=== PATIENT | female | born 1950 | race Caucasian/White ===

== ENCOUNTER 2022-10-08 21:25 | Observation (INO) ==
--- NOTE | 2022-10-08 21:45 | Emergency Department Note ---
History of Present Illness General Chief complaint: Hypertension Stated complaint: BLOOD PRESSURE HIGH; NAUSEA Time Seen by Provider: 10/08/22 21:34 History of Present Illness This is a 72-year-old female that presents to the emergency department via private vehicle with complaints of "blood pressure elevated, nausea". The patient notes a history of hypertension and hypercholesterolemia. She currently is on metoprolol and recently had her dose change from 25 mg to 50 mg. She states that today around 1 PM she fell like her blood pressure was elevated. She checked her blood pressure and it was elevated. She then went and had a hair appointment followed by running some errands and then checked it again around 4 PM. That was when she took 50 mg of metoprolol. She checked her blood pressure at that time and it was 171/102. She felt nauseated and dizzy. She described the dizziness as a room spinning sensation. She still feels nauseated. Patient feels warm/flushed. She denies any fevers, chills, chest pain, shortness of breath, vomiting or diarrhea. She had a headache earlier but did take ibuprofen and since then this has greatly improved. No history of OK or PE. No history of CVA. Home Medications Medication Instructions Recorded Confirmed Type amitriptyline 25 mg tablet 25 mg PO HS 10/09/22 10/09/22 History atorvastatin 20 mg tablet 20 mg PO HS 10/09/22 10/09/22 History lorazepam 0.5 mg tablet 0.5 mg PO HS PRN Insomnia 10/09/22 10/09/22 History metoprolol succinate 50 mg 50 mg PO DAILY 10/09/22 10/09/22 History tablet,extended release 24 hr Allergies Allergy/AdvReac Type Severity Reaction Status Date / Time No Known Allergies Allergy Unknown NO Verified 09/29/09 15:17 Past Med/Surg History Medical History HTN (hypertension) Hx of breast cancer Hypercholesteremia Surgical History Hx of breast surgery Social History Smoking Status: Never smoker Second Hand Exposure: No; Do You Dip or Chew Tobacco: No; Hx Alcohol Use: Yes Alcohol type: wine Hx Substance Use: No Preferred Language: Omani Communication Ability: Effective Vascular Ultrasound Technician Required: No Beliefs That Will Affect Care: None Current Living Situation: Spouse Current Living Situation Comment: Lives w/ spouse @ home Feels Safe at Home: Yes Safety Concerns: Feels Safe At This Time Assistive Devices: None Review of Systems A total of 10 systems reviewed and were otherwise negative Physical Exam Vital Signs Vital Signs - 24 hr 10/08/22 21:29 10/08/22 22:08 10/08/22 23:00 Temperature 37 C Temperature Source Temporal Artery Scan Pulse Rate 94 H 71 Pulse Rate [Apical] 86 Pulse Rate from SpO2 Sensor 70 Pulse Rhythm Regular Pulse Strength Normal Respiratory Rate 18 20 16 Respiratory Effort / Characteristics Non-Labored Spontaneous Non-Labored Respiratory Depth Normal Normal Respiratory Pattern Regular Blood Pressure 163/85 H 130/66 Blood Pressure Mean 111 87 Blood Pressure Position Sitting Pulse Oximetry 95 95 95 Oxygen Delivery Method Room Air Room Air Room Air Sepsis Recent Fever Within 48 Hours No Sepsis New/Unexplained Change in Mental Status N/A Sepsis Action Taken by Nursing No Action Required 10/08/22 23:33 10/09/22 00:00 10/09/22 00:30 Temperature Temperature Source Pulse Rate 80 76 76 Pulse Rate [Apical] Pulse Rate from SpO2 Sensor 80 76 76 Pulse Rhythm Pulse Strength Respiratory Rate 12 16 19 Respiratory Effort / Characteristics Respiratory Depth Respiratory Pattern Blood Pressure 154/64 H 142/61 H 154/90 H Blood Pressure Mean 94 88 111 Blood Pressure Position Pulse Oximetry 95 92 95 Oxygen Delivery Method Room Air Room Air Sepsis Recent Fever Within 48 Hours Sepsis New/Unexplained Change in Mental Status Sepsis Action Taken by Nursing 10/09/22 01:00 10/09/22 01:30 Temperature Temperature Source Pulse Rate 73 80 Pulse Rate [Apical] Pulse Rate from SpO2 Sensor 73 77 Pulse Rhythm Pulse Strength Respiratory Rate 19 17 Respiratory Effort / Characteristics Respiratory Depth Respiratory Pattern Blood Pressure 136/65 113/64 Blood Pressure Mean 88 80 Blood Pressure Position Pulse Oximetry 92 92 Oxygen Delivery Method Room Air Room Air Sepsis Recent Fever Within 48 Hours Sepsis New/Unexplained Change in Mental Status Sepsis Action Taken by Nursing VITAL SIGNS - Vital signs and nursing notes were reviewed. Stable and afebrile. Mildly hypertensive. GENERAL -72-year-old female appearing her stated age who is in no acute distress. Communicates well with provider and answers questions appropriately. SKIN - Without rashes. No meningeal or petechial rash. HEAD - NC/AT. EYES - PERRL with EOMI bilaterally. Sclera anicteric. EARS - No deformities of external structures noted on gross examination bilaterally. NOSE - Midline and without cyanosis. MOUTH/OROPHARYNX - Without perioral cyanosis. NECK - Neck with FROM. No nuchal rigidity. LUNGS - Chest wall symmetric without accessory muscle use, intercostals retractions, or central cyanosis. Normal vesicular breath sounds CTA B/L. No wheezes, rales, or rhonchi appreciated. CARDIAC - RRR with S1/S2. No murmur, rubs, or gallops appreciated. ABDOMEN - Abdominal contour normal without pulsations or visible masses. BS normoactive all four quadrants. No tenderness, palpable masses, hepatosplenomegaly, or ascites noted. EXTREMITIES - No clubbing or peripheral cyanosis. +5/5 strength noted in UE/LE bilaterally. NEUROLOGIC - Cranial nerves II through XII grossly intact. PSYCH - A&O, and cooperates fully with examiner. Pt is very pleasant and interacts well with examiner. Course Administered Medications Dextrose/Sodium Chloride (D5w And Nss) 1,000 mls @ 80 mls/hr IV .[id number] KRAIG Stop: 10/09/22 14:54 Last Admin: 10/09/22 02:49 Dose: 80 mls/hr Documented By: MICHAEL Ceftriaxone Sodium 2,000 mg/ (Dextrose) 70 mls @ 100 mls/hr IV Q24H KRAIG; Protocol Stop: 10/19/22 02:59 Last Infusion: 10/09/22 04:09 Dose: 0 mls/hr Documented By: Admin: 10/09/22 03:30 Dose: 100 mls/hr Documented By: RENÉ Discontinued Medications Diphenhydramine HCl (Diphenhydramine 50 Mg/Ml Vial) 12.5 mg IV NOW STA Stop: 10/08/22 23:36 Last Admin: 10/08/22 23:40 Dose: 12.5 mg Documented By: NIKOLAS Sodium Chloride (Nss 1000ml) 1,000 mls @ 999 mls/hr IV .Q1H1M KRAIG Stop: 10/09/22 00:15 Last Infusion: 10/09/22 00:31 Dose: 0 mls/hr Documented By: Admin: 10/08/22 23:34 Dose: 999 mls/hr Documented By: NIKOLAS Ioversol (Optiray 320 500ml) 103 ml IV ONCE ONE Stop: 10/08/22 23:27 Last Admin: 10/08/22 23:27 Dose: 103 ml Documented By: ZAKIA Metoclopramide HCl (Metoclopramide Hcl Inj 5 Mg/Ml 2 Ml Vial) 5 mg IV ONE ONE Stop: 10/08/22 23:36 Last Admin: 10/08/22 23:40 Dose: 5 mg Documented By: NIKOLAS Ondansetron HCl (Ondansetron Inj 2 Mg/Ml 2 Ml Vial) 4 mg IV NOW STA Stop: 10/08/22 22:04 Last Admin: 10/08/22 22:15 Dose: 4 mg Documented By: MILLI Medical Decision Making Laboratory Data Result diagrams: 10/09/22 05:36 10/09/22 05:36 Lab Results 10/08/22 10/08/22 10/08/22 Range/Units 22:06 22:06 22:09 WBC 7.87 (4.8-10.8) K/ul RBC 4.44 (3.93-5.22) M/uL Hgb 14.4 (12.0-16.0) g/dl Hct 41.0 (34.1-44.9) % MCV 92.3 (80.0-100.0) fL MCH 32.4 (25.0-34.0) pg MCHC 35.1 (32.0-36.0) g/dL RDW Std Deviation 42.9 (36.4-46.3) fL RDW Coeff of Amber 12.5 (11.5-14.5) % Plt Count 126 L (130-400) K/uL MPV 10.3 (9.4-12.3) fL Immature Gran % (Auto) 0.3 % Neut % (Auto) 58.4 % Lymph % (Auto) 29.1 % [place] % (Auto) 8.4 % Eos % (Auto) 3.0 % Baso % (Auto) 0.8 % Neut # (Auto) 4.60 (1.4-6.5) K/uL Lymph # (Auto) 2.29 (1.2-3.4) K/uL [place] # (Auto) 0.66 (0.24-0.82) K/uL Eos # (Auto) 0.24 (0-0.50) K/uL Baso # (Auto) 0.06 (0-0.2) K/uL Immature Gran # (Auto) 0.02 (0.00-0.02) K/uL PT (9.0-12.0) Seconds INR (0.9-1.1) APTT (21.0-31.0) Seconds PTT Ratio Sodium (136-145) mmol/L Potassium (3.5-5.1) mmol/L Chloride (98-107) mmol/L Carbon Dioxide (21-32) mmol/L Anion Gap (3-11) BUN (6-23) mg/dl Creatinine (0.6-1.2) mg/dl Est Cr Clr Drug Dosing ml/min Est GFR ( Amer) ml/min Est GFR (Non-Af Amer) ml/min BUN/Creatinine Ratio (10-20) Glucose (70-99(Fasting)) mg/dl Calcium (8.5-10.1) mg/dl Magnesium (1.7-2.4) mg/dl Total Bilirubin (0.2-1.0) mg/dl AST (13-39) U/L ALT (7-52) U/L Alkaline Phosphatase (34-104) U/L Troponin I High Sens (0-14) pg/ml Total Protein (6.0-8.3) gm/dl Albumin (3.4-5.0) gm/dl Globulin (2.5-4.0) gm/dl Albumin/Globulin Ratio (0.9-2) TSH (0.300-4.500) uIu/ml Free T4 (0.61-1.60) ng/dl Urine Color Yellow Urine Appearance Clear (Clear) Urine pH 6.5 (4.5-7.5) Ur Specific [place] 1.011 (1.000-1.030) Urine Protein Negative (Negative) Urine Glucose (UA) Negative (Negative) Urine Ketones Negative (Negative) Urine Blood Negative (Negative) Urine Nitrite Negative (Negative) Urine Bilirubin Negative (Negative) Urine Urobilinogen Negative (Negative) Ur Leukocyte Esterase 2+ H (Negative) Urine WBC (Auto) 10-30 H (0-5) /hpf Urine RBC (Auto) 0-4 (0-4) /hpf U Hyaline Cast (Auto) 1-5 (0-5) /lpf U Epithel Cells (Auto) >30 H (0-5) /lpf Urine Bacteria (Auto) Negative (Negative) SARS-CoV-2 (PCR) NEGATIVE (Negative) Influenza Type A (PCR) Negative (Neg) Influenza Type B (PCR) Negative (Neg) RSV (RT-PCR) Negative (Neg) 10/08/22 10/08/22 10/08/22 Range/Units 22:09 22:09 22:09 WBC (4.8-10.8) K/ul RBC (3.93-5.22) M/uL Hgb (12.0-16.0) g/dl Hct (34.1-44.9) % MCV (80.0-100.0) fL MCH (25.0-34.0) pg MCHC (32.0-36.0) g/dL RDW Std Deviation (36.4-46.3) fL RDW Coeff of Amber (11.5-14.5) % Plt Count (130-400) K/uL MPV (9.4-12.3) fL Immature Gran % (Auto) % Neut % (Auto) % Lymph % (Auto) % [place] % (Auto) % Eos % (Auto) % Baso % (Auto) % Neut # (Auto) (1.4-6.5) K/uL Lymph # (Auto) (1.2-3.4) K/uL [place] # (Auto) (0.24-0.82) K/uL Eos # (Auto) (0-0.50) K/uL Baso # (Auto) (0-0.2) K/uL Immature Gran # (Auto) (0.00-0.02) K/uL PT 12.6 H (9.0-12.0) Seconds INR 1.2 H (0.9-1.1) APTT 29.2 (21.0-31.0) Seconds PTT Ratio 1.1 Sodium 138 (136-145) mmol/L Potassium 3.7 (3.5-5.1) mmol/L Chloride 102 (98-107) mmol/L Carbon Dioxide 27 (21-32) mmol/L Anion Gap 9 (3-11) BUN 20 (6-23) mg/dl Creatinine 0.77 (0.6-1.2) mg/dl Est Cr Clr Drug Dosing 59.3 ml/min Est GFR ( Amer) 88.8 ml/min Est GFR (Non-Af Amer) 76.6 ml/min BUN/Creatinine Ratio 26.0 H (10-20) Glucose 117 H (70-99(Fasting)) mg/dl Calcium 10.2 H (8.5-10.1) mg/dl Magnesium 2.1 (1.7-2.4) mg/dl Total Bilirubin 1.5 H (0.2-1.0) mg/dl AST 28 (13-39) U/L ALT 31 (7-52) U/L Alkaline Phosphatase 103 (34-104) U/L Troponin I High Sens 20.6 H (0-14) pg/ml Total Protein 7.9 (6.0-8.3) gm/dl Albumin 4.4 (3.4-5.0) gm/dl Globulin 3.5 (2.5-4.0) gm/dl Albumin/Globulin Ratio 1.3 (0.9-2) TSH 6.566 H (0.300-4.500) uIu/ml Free T4 0.72 (0.61-1.60) ng/dl Urine Color Urine Appearance (Clear) Urine pH (4.5-7.5) Ur Specific [place] (1.000-1.030) Urine Protein (Negative) Urine Glucose (UA) (Negative) Urine Ketones (Negative) Urine Blood (Negative) Urine Nitrite (Negative) Urine Bilirubin (Negative) Urine Urobilinogen (Negative) Ur Leukocyte Esterase (Negative) Urine WBC (Auto) (0-5) /hpf Urine RBC (Auto) (0-4) /hpf U Hyaline Cast (Auto) (0-5) /lpf U Epithel Cells (Auto) (0-5) /lpf Urine Bacteria (Auto) (Negative) SARS-CoV-2 (PCR) (Negative) Influenza Type A (PCR) (Neg) Influenza Type B (PCR) (Neg) RSV (RT-PCR) (Neg) Imaging Data Radiologist's Impression: CT HEAD: Impression: No ICH, mass effect or edema. No evidence of acute cortical stroke. Visualized sinuses and mastoid air cells are clear. Radiologist: Rony Robison MD Study ready at 22:34 and initial results transmitted at 22:57 CTA HEAD: Negative CT angiogram of the head. No comparisons. Radiologist: Gladys Abreu MD Study ready at 23:49 and initial results transmitted at 00:02 CTA NECK: Bilateral ICA fibromuscular dysplasia. Otherwise negative CT angiogram of the neck. No comparisons. Cervical lymphadenopathy. Right thyroid nodule. Radiologist: Gladys Abreu MD Study ready at 23:49 and initial results transmitted at 00:07 MDM Narrative Patient was seen and evaluated as above in room A11. Review was performed of nursing notes and vital signs. I did review pertinent previous visits and p atient history. After obtaining a thorough history and physical examination the above work up was performed. No indication for stroke alert at this time noting time since onset of symptoms versus presenting time. Options of care were discussed with the patient. IV access was established. Labs were drawn. She was medicated with IV Zofran for nausea. EKG reveals sinus rhythm at a rate of 80 bpm. QTc 459. QRS 96. No ST elevation. Labs reveal no leukocytosis or concerning anemia. Mild INR elevation at 1.2. Metabolic panel reveals hyperglycemia 117. Hypercalcemia 10.2. Hyperbilirubine too 1.5. Troponin also mildly elevated at 20.6. TSH elevated at 6.5. Urinalysis reveals what is likely a contaminated sample. COVID, flu and RSV testing negative. Chest x-ray per my interpretation reveals no emergent process. Initial CT scan of the head without contrast normal. CTAs were then obtained of the head and neck to further evaluate the patient's vertiginous symptoms. IV fluids also ordered as she feels dry and clinically appears dry. CTA results as above. No emergent occlusion noted. Bilateral ICA fibromuscular dysplasia noted. Patient continued with some nausea that was medicated with Reglan and a small amount of Benadryl. She was reevaluated with some improvement. Patient's symptoms started around 1 PM and with the troponin being drawn at 2209 and found to be at 20.6 it is felt that significant myocardial ischemia is unlikely. I will also note that there is no chest pain. However, given the patient's dizziness, nausea and small troponin elevation with associated underlying comorbidities it is felt that further evaluation and management in the inpatient setting is warranted. Case discussed with the hospitalist service. Patient amenable to plan of care. Please refer to further documentation regarding her stay. Case was discussed with the attending physician. GCS: 15 In the evaluation and treatment of this patient the following differential diagnoses were entertained: OK, PE, pericarditis, costochondritis, CVA, TIA, electrolyte disturbance, infection, UTI, among others Impression & Plan Elevated troponin, Dizziness, Elevated blood pressure reading, Nausea Discharge Plan Visit Data Chief Complaint: Hypertension Stated Complaint: BLOOD PRESSURE HIGH; NAUSEA ED Provider: Perico Lindsay ED Midlevel Provider: Gregory Joseph Discharge Problem: Elevated troponin, Dizziness, Elevated blood pressure reading, Nausea Patient Disposition: Admitted As Inpatient Condition: Good Discharge Instructions Interventions: ED Discharge Assessment Last Done: 10/09/22 02:04 Addendum October 09, 2022 06:27 HPI: The patient is a 72-year-old woman who presents to the emergency department for nausea and dizziness which began at 1 PM today and noticed her blood pressure was elevated. Her symptoms persisted throughout today with dizziness and room spinning. She denies chest pain, shortness of breath, fevers, cough or congestion. She had a mild headache earlier in the day but resolved with ibuprofen. VS: Afebrile with heart rate in the 90s and blood pressure 160s/80s and vital signs otherwise stable. A/P: EKG without overt acute ischemia. CXR negative for acute cardiopulmonary process per preliminary review. WBC, H/H normal limits. Platelets 126K without prior values for comparison nonspecific. Chemistry without metabolic acidosis. High-sensitivity troponin 20.6, nonspecific. TSH elevated at 6.5 however free T4 within normal limits. UA with WBCs albeit with epithelial cells and no bacteria. Covid-19 PCR negative. Influenza and RSV PCR negative. CT of the head and CTA of the head and neck were performed. Note is made of bilateral ICA fibromuscular dysplasia per preliminary stat rad report. Otherwise no acute abnormalities identified. Patient felt improved following hydration and antiemetics with BP improved. However still somewhat symptomatic and so agrees with plan for admission for further evaluation and treatment. I was consulted by the Advanced Practice Provider.I performed a substantive portion of the visit.This includes aspects of the HPI, MDM, diagnostic interpretations, and disposition/plan. I discussed the case with the KAT and agree with the findings and plan as documented in KAT Bamat's note.
[2022-10-08] MEDS ORDERED: ONDANSETRON INJ 2 MG/ML 2 ML VIAL IV STA (22:03)
[2022-10-08 22:34] LABS: INR 1.2 (0.9-1.1); Partial Thromboplastin Ratio 1.1; Partial Thromboplastin Time 29.2 Seconds (21.0-31.0); Prothrombin Time 12.6 Seconds (9.0-12.0)
[2022-10-08 22:44] LABS: Albumin Globulin Ratio 1.3 (0.9-2); Albumin Level 4.4 gm/dl (3.4-5.0); Bilirubin,Total 1.5 mg/dl (0.2-1.0); Calcium 10.2 mg/dl (8.5-10.1); Creatinine Clr Calc Pharmacy 59.3 ml/min; Est GFR (African American) 88.8 ml/min; Est GFR (Non-African American) 76.6 ml/min; Globulin 3.5 gm/dl (2.5-4.0); Magnesium 2.1 mg/dl (1.7-2.4); Potassium 3.7 mmol/L (3.5-5.1); Total Protein 7.9 gm/dl (6.0-8.3)
[2022-10-08 22:50] LABS: Basophils # (auto) 0.06 K/uL (0-0.2); Basophils % (auto) 0.8 %; Eosinophils # (auto) 0.24 K/uL (0-0.50); Hemoglobin 14.4 g/dl (12.0-16.0); Immature Granulocytes # (auto) 0.02 K/uL (0.00-0.02); Immature Granulocytes % (auto) 0.3 %; Lymphocytes # (auto) 2.29 K/uL (1.2-3.4); Lymphocytes % (auto) 29.1 %; Mean Corpuscular Hemoglobin 32.4 pg (25.0-34.0); Mean Corpuscular Hgb Conc 35.1 g/dL (32.0-36.0); Mean Corpuscular Volume 92.3 fL (80.0-100.0); Mean Platelet Volume 10.3 fL (9.4-12.3); Monocytes # (auto) 0.66 K/uL (0.24-0.82); Monocytes % (auto) 8.4 %; Neutrophils % (auto) 58.4 %; Platelet Count 126 K/uL (130-400); RDW Coefficient of Variation 12.5 % (11.5-14.5); RDW Standard Deviation 42.9 fL (36.4-46.3); Red Blood Count 4.44 M/uL (3.93-5.22); White Blood Count 7.87 K/ul (4.8-10.8)
[2022-10-08 22:51] LABS: Troponin I High Sensitivity 20.6 pg/ml (0-14)
[2022-10-08 22:56] LABS: Appearance Urine Clear (Clear); Bacteria Urine Automated Negative (Negative); Bilirubin Urine Negative (Negative); Blood Urine Negative (Negative); Color Urine Yellow; Epithelial Cell Urine Auto >30 /lpf (0-5); Glucose Urine UA Negative (Negative); Ketones Urine Negative (Negative); Leukocyte Esterase Urine 2+ (Negative); Nitrite Urine Negative (Negative); Protein Urine Negative (Negative); RBC Urine Automated 0-4 /hpf (0-4); Specific Gravity Urine 1.011 (1.000-1.030); Urobilinogen Urine Negative (Negative); pH Urine 6.5 (4.5-7.5)
[2022-10-08 22:59] LABS: Thyroid Stimulating Hormone 6.566 uIu/ml (0.300-4.500)
[2022-10-08 23:02] LABS: Influenza A virus by PCR Negative (Neg); Influenza B virus by PCR Negative (Neg); RSV by PCR Negative (Neg); SARS CoV2 RNA(COVID-19)Cepheid NEGATIVE (Negative)
[2022-10-08] MEDS ORDERED: SODIUM CHLORIDE 0.9% 1000ML 1,000 ML IV SCH (23:15)
[2022-10-08] MEDS ORDERED: OPTIRAY 320 500ml IV ONE (23:26)
[2022-10-08 23:31] LABS: T4 Free Thyroxine 0.72 ng/dl (0.61-1.60)
[2022-10-08] MEDS ORDERED: diphenhydrAMINE 50 MG/ML VIAL IV STA (23:35)
[2022-10-08] MEDS ORDERED: METOCLOPRAMIDE HCL INJ 5 MG/ML 2 ML VIAL IV ONE (23:35)
[2022-10-09] MEDS ORDERED: D5W AND NSS 1,000 ML IV SCH (02:25)
[2022-10-09] MEDS ORDERED: LORazepam 0.5 MG TAB PO PRN (02:25)
[2022-10-09] MEDS ORDERED: ACETAMINOPHEN 325 MG TAB PO PRN (02:25)
[2022-10-09] MEDS ORDERED: ONDANSETRON INJ 2 MG/ML 2 ML VIAL IV PRN (02:25)
[2022-10-09] MEDS ORDERED: NITROGLYCERIN SL 0.4 MG/TAB TAB SL PRN (02:25)
[2022-10-09] MEDS ORDERED: POLYETHYLENE (MIRALAX) 17 GM PACK PO PRN (02:25)
[2022-10-09] MEDS ORDERED: cefTRIAXone SODIUM 2,000 MG in DEXTROSE 5% 50 ML IV SCH (03:00)
--- NOTE | 2022-10-09 03:16 | History and Physical Report ---
DATE OF ADMISSION: 10/09/2022. CHIEF COMPLAINT: Elevated blood pressure, dizzy and nausea. HISTORY OF PRESENT ILLNESS: This is a 72-year-old female with past medical history significant for hyperlipidemia, hypertension, tension headache, history of breast cancer diagnosed in 2008, status post right partial mastectomy and radiation, history of insomnia, generalized anxiety, comes because of dizzy and nausea. The patient says she was at work when she felt her blood pressure running high at workplace and she came home at 4 p.m., took her blood pressure, systolic blood pressure was 169. She took her metoprolol dose of 50 mg, which was recently increased from 25 to 50mg and she had conference and when she came back at 8 p.m., her systolic blood pressure was still 177, she decided to come to the hospital. On the way she felt nauseous and dizzy and the room spinning. She thought she will get diarrhea she had no bowel movement in the ER .She had episode of vomiting in the ER. She received Benadryl, Reglan and Zofran. Currently, resting comfortably, hemodynamically stable. Denies any chest pain or shortness of breath. No cough, no fever, no chills. No difficulty swallowing. She had a headache earlier that has resolved. No blurred visions. Currently, no dizziness. Currently, no nausea. No earaches, no abdominal pain. Normal bowel and bladder movements. No swelling in the legs, no rash. Otherwise, ambulating okay. ALLERGIES: No known drug allergies. PAST MEDICAL HISTORY: As mentioned above. PAST SURGICAL HISTORY: Lipoma of left shoulder, biopsy of breast, colonoscopy, right partial mastectomy, radiation treatment, reduction of the breast on left side. MEDICATIONS: The patient is on amitriptyline 25 mg p.o. at bedtime, atorvastatin 20 mg p.o. at bedtime, Ativan 0.5 mg p.o. at bedtime p.r.n., metoprolol succinate 50 mg p.o. daily. FAMILY HISTORY: Significant for mother has hyperlipidemia. Sister has diabetes, hypertension. Paternal grandmother had breast cancer. Paternal grandfather diabetes. Maternal grandmother had diabetes. SOCIAL HISTORY: . No smoking. Alcohol occasional. No drug use. REVIEW OF SYSTEMS: As per HPI. Rest of the review of systems is negative. PHYSICAL EXAMINATION: GENERAL: The patient is of moderate build, not in acute distress. VITAL SIGNS: Temperature 37, pulse 71, respiratory rate 16, blood pressure 113/66, oxygen 99% on room air. HEENT: Pupils equal, round and reactive to light. Oral mucosa moist. NECK: No JVD or neck masses. CARDIOVASCULAR: S1 and S2 heard. Regular rate and rhythm. No murmur, no gallop. RESPIRATORY SYSTEM: Normal AP diameter. No accessory muscle use. No wheezing or crackles. ABDOMEN: Soft, bowel sounds present, nontender, no distention. CENTRAL NERVOUS SYSTEM: Cranial nerves II-XII grossly intact, nonfocal. EXTREMITIES: No edema, no erythema. LABORATORY DATA: WBC 7.8, hemoglobin 14.4, hematocrit 41, platelets 126. PT 12.6, INR 1.2. Sodium 138, potassium 3.7, chloride 102, bicarbonate 27, BUN 20, creatinine 0.7, serum glucose 117, calcium 10.2, magnesium 2.1, total bilirubin 1.5, AST 28, ALT 31, alkaline phosphatase 103. Troponin I high sensitivity 20.6, TSH 6.5, free T4 0.7. Urinalysis, +2 leukocyte esterase, bacteria negative. SARS-CoV-2 PCR negative. Influenza A and B PCR negative. RSV PCR negative. IMAGING DATA: CTA of the neck preliminary report, bilateral internal carotid artery fibromuscular dysplasia, otherwise negative CT angiogram of the neck. Negative CT angiogram of the head. Head CT without contrast, preliminary report, no acute findings. Chest x-ray, no acute findings. EKG: Sinus rhythm with first-degree AV block with PACs at a rate of 80, incomplete right bundle-branch block, left anterior fascicular block. ASSESSMENT AND PLAN: This is a 72-year-old female who presents with nausea, dizziness and elevated blood pressure. 1. Nausea and dizziness. CTA of the head and neck and CT of the head, preliminary report unremarkable. Will Follow the final report. Currently, symptoms resolved with medication in the ER. Has mild elevation of troponin, but denies any chest pain or shortness of breath. The patient states that the blood pressure was running high at home. We will follow in the hospital with serial cardiac enzymes, echocardiogram. Keep her n.p.o. and cardiology consult in am. Closely monitor in the [employer] tele. Continue Zofran p.r.n. for nausea. 2. Possible UTI, causing her symptoms. We will start with Rocephin. Follow the cultures. 3. History of hypertension: Continue home metoprolol. We will monitor the blood pressure in the hospital. Currently stable. 4. Hyperlipidemia: Continue statin. 5. Generalized anxiety. Continue home amitriptyline and Ativan p.r.n. 6. Insomnia. Ativan p.r.n. 7. Thrombocytopenia, platelets are 126. Needs followup. 8. Deep venous thrombosis prophylaxis: Sequential compression devices. DISPOSITION: Closely monitor in the med tele. PT/OT prior to discharge. Social service to help with discharge plan. Job ID: [id number] [email or web address]
[2022-10-09 06:12] LABS: BUN Creatinine Ratio 26.6 (10-20); Est GFR (African American) 102.6 ml/min; Est GFR (Non-African American) 88.5 ml/min; Magnesium 2.1 mg/dl (1.7-2.4); Potassium 4.3 mmol/L (3.5-5.1)
[2022-10-09 06:15] LABS: Basophils # (auto) 0.04 K/uL (0-0.2); Basophils % (auto) 0.6 %; Eosinophils # (auto) 0.05 K/uL (0-0.50); Eosinophils % (auto) 0.7 %; Hematocrit (blood only) 37.5 % (34.1-44.9); Hemoglobin 13.3 g/dl (12.0-16.0); Immature Granulocytes # (auto) 0.02 K/uL (0.00-0.02); Immature Granulocytes % (auto) 0.3 %; Lymphocytes # (auto) 1.78 K/uL (1.2-3.4); Lymphocytes % (auto) 24.7 %; Mean Corpuscular Hemoglobin 33.3 pg (25.0-34.0); Mean Corpuscular Hgb Conc 35.5 g/dL (32.0-36.0); Mean Platelet Volume 10.2 fL (9.4-12.3); Monocytes # (auto) 0.59 K/uL (0.24-0.82); Monocytes % (auto) 8.2 %; Neutrophils # (auto) 4.72 K/uL (1.4-6.5); Neutrophils % (auto) 65.5 %; Platelet Count 114 K/uL (130-400); RBC Morphology Unremarkable; RDW Coefficient of Variation 12.3 % (11.5-14.5); RDW Standard Deviation 42.9 fL (36.4-46.3); Red Blood Count 3.99 M/uL (3.93-5.22); Troponin I High Sensitivity 17.6 pg/ml (0-14)
--- NOTE | 2022-10-09 06:43 | CT Scan Report ---
CT SCAN OF THE BRAIN WITHOUT IV CONTRAST CLINICAL HISTORY: Hypertension. Nausea. Headache and dizziness. COMPARISON STUDY: No priors. TECHNIQUE: Unenhanced axial CT scan of the brain is performed from the vertex to the skull base. A do se lowering technique was utilized adhering to the principles of ALARA. CT DOSE: 537.48 mGy.cm FINDINGS: Brain parenchyma: There is age-related involutional change noting minimal microangiopathic disease. T here is no hemorrhage, mass effect, or evidence of acute territorial ischemia by CT criteria. Salazar-wh ite matter differentiation is preserved. No extra-axial fluid collection is seen. Ventricles, sulci, cisterns: Prominent secondary to involutional change. Intracranial vasculature: The intracranial vessels at the skull base are normal as imaged. Calvarium: Unremarkable. Sinuses and mastoids: The visualized paranasal sinuses are clear. The mastoid air cells are well pneu matized. Orbits: The bony orbits are grossly intact. IMPRESSION: There is no hemorrhage, mass effect, or evidence of acute territorial ischemia by CT cheli reich. ACT 112: Negative or not required by law. Electronically signed by: Hung Humphries M.D. 10/09/2022 6:41 AM
--- NOTE | 2022-10-09 06:48 | CT Scan Report ---
CT ANGIOGRAM OF THE NECK CLINICAL HISTORY: Nausea and dizziness. Hypertension. COMPARISON STUDY: No priors. TECHNIQUE: Following the IV administration of 103 of Optiray 350, CT angiogram of the neck was perfor med from the aortic arch to the skull base. Images are reviewed in the axial, sagittal, and coronal p lanes. 3-D MIPS images are created and assessed. IV contrast was administered without complication. A ll measurements were calculated based on NASCET criteria. A dose lowering technique was utilized adh ering to the principles of ALARA. CT DOSE: 489.04 mGy.cm FINDINGS: Thoracic aorta: Visualized portions of the thoracic aorta are normal in caliber. The aortic arch demo nstrates standard 3-vessel anatomy. Right carotid arterial system: The right common carotid artery is widely patent, as are the right int ernal and external carotid arteries. The right internal carotid artery demonstrates a beaded appearan ce, typical for fibromuscular dysplasia. Left carotid arterial system: The left common carotid artery is widely patent, as are the left manager internet al and external carotid arteries. The internal carotid artery demonstrates a beaded appearance, typic al for fibromuscular dysplasia. Vertebral arteries: The vertebral arteries are widely patent bilaterally and codominant. Subclavian arteries: Widely patent bilaterally. Intracranial vasculature: The visualized intracranial vessels the skull base are widely patent. Jugular veins: Widely patent bilaterally. Brain parenchyma: The visualized brain parenchyma the skull base is within normal limits. Lung apices: Partially visualized upper lobe lung parenchyma appears clear. Soft tissues: The visualized pharyngeal soft tissues are normal in appearance noting angiographic pha se technique. The oropharyngeal airway appears widely patent. The salivary and thyroid glands are nor mal in appearance. No cervical lymphadenopathy is seen. Skeletal structures: The skeletal structures are osteopenic. The visualized calvarium at the skull ba se appears intact. The imaged cervical spine is maintained noting mild spondylosis. No lytic or blast ic lesion is seen. Sinuses and mastoids: The visualized paranasal sinuses are clear. The mastoid air cells are well pneu matized. IMPRESSION: 1. Both internal carotid arteries demonstrate a beaded appearance, typical for fibromuscular dysplasi a. 2. The carotid and vertebral arteries are widely patent bilaterally. ACT 112: Negative or not required by law. Electronically signed by: Hung Humphries M.D. 10/09/2022 6:46 AM
--- NOTE | 2022-10-09 07:23 | CT Scan Report ---
CT angio head w con CLINICAL HISTORY: 72 years-old Female with nausea, dizziness, htn. Acute nausea with dizziness and hypertension COMPARISON STUDY: Head CT of same day TECHNIQUE: Following the IV administration of cc of Optiray, CT angiogram of the brain was performed from the skull base to the vertex. Images are reviewed in the axial, sagittal, and coronal planes. 3- D MIPS images are created and assessed. IV contrast was administered without complication. All measur ements were obtained according to NASCET criteria. A dose lowering technique was utilized adhering to the principles of ALARA. FINDINGS: CT ANGIOGRAM OF THE BRAIN: The distal internal carotid arteries are irregular with a beaded morphology, notably within the dista l cervical segments. The middle and anterior cerebral arteries are patent. The distal vertebral arter ies, basilar and posterior cerebral arteries are patent. Cerebral venous sinuses are patent. There is no abnormal intracranial enhancement identified. No acute calvarial fracture. The mastoid air cells and paranasal sinuses are clear. Unremarkable soft tissues. IMPRESSION: 1. Unremarkable CTA of the head. 2. Irregular beaded morphology involving the distal cervical segments of the internal carotid arterie s may represent fibromuscular dysplasia. ACT 112: Negative or not required by law. The above report was generated using voice recognition software. It may contain grammatical, syntax o r spelling errors. Electronically signed by: Ross Stewart M.D. 10/09/2022 7:21 AM
--- NOTE | 2022-10-09 07:48 | XRay Report ---
XR chest 1V portable HISTORY: 72 years-old Female nausea, htn, dizziness do not with hypertension and dizziness COMPARISON: None TECHNIQUE: AP view of the chest FINDINGS: Cardiomediastinal and hilar silhouettes are within normal limits. No pneumothorax, pleural effusion, airspace consolidation or overt pulmonary edema. Bones of the chest appear grossly intact. IMPRESSION: No acute process. ACT 112: Negative or not required by law. The above report was generated using voice recognition software. It may contain grammatical, syntax o r spelling errors. Electronically signed by: Ross Stewart M.D. 10/09/2022 7:47 AM
[2022-10-09] MEDS ORDERED: METOPROLOL SUCC 50MG EXT REL TAB PO SCH (09:00)
--- NOTE | 2022-10-09 11:35 | Cardiology Consultation ---
Date of Consultation October 09, 2022 Assessment & Plan (1) HTN, goal below 140/80: (2) Elevated troponin: (3) Nausea: (4) Dyslipidemia, goal LDL below 100: (5) Fibromuscular dysplasia: Plan Hypertension. CTA of the neck with fibromuscular dysplasia. ? renal artery involvement as well. Recommend referral for bilateral renal duplex. Continue metoprolol. Recommend initiation of an ANASTASIA/ARB (drug of choice in fibromuscular dysplasia). Losartan 25 mg/day prescribed with benefits, use, risks explained. A thiazide diuretic would be the next drug of choice prior to adding a long- acting dihydropyridine calcium channel deirdre. Elevated high-sensitivity troponin, in the absence of an acute coronary syndrome. Recommend referral for stress echocardiography given elevated troponin, symptoms, risk factors. Fibromuscular dysplasia. See above. Recommend Aspirin 81 mg/day. Dyslipidemia. Continue statin. Supervising Physician Co-Signing Physician Notes Supervising Physician Attestation: I have personally performed a history and physical examination on the patient. I agree with the physician acute care nursing assistant's findings and plan as documented with the following additions. Subjective: Patient with intermittent nauseousness. Improved. No chest discomfort or shortness of breath. Exam: Cardiovascular: Regular rhythm no murmurs Data: Most recent outpatient lipid panel 02/04/2021: Total cholesterol 244, HDL 55, LDL 151 Exercise stress echocardiogram negative for inducible ischemia exercising into stage II of Paul protocol Renal artery duplex performed: Per radiology report, no evidence of renal artery stenosis HS troponin level 20.6--> 17.6--> 13.6 Assessment and Plan: Mild elevation in troponin -Work-up with regards to stress echocardiogram reassuring. HTN -Add losartan to her prior to hospital treatment metoprolol, consider HCTZ as outpatient. Dyslipidemia -Recently prescribed atorvastatin 40 mg daily as an outpatient. PCP plans repeat blood work after little bit over a month of therapy. -Cardiac work-up is reassuring. -Defer assessment of possible UTI, and elevated total bilirubin to hospitalist service. -No further cardiac work-up felt to be indicated. Rocky Cole, DO History of Present Illness Reason for Consultation: Nausea, dizziness, elevated troponin Requesting Physician: Monica Attending Physician: Laury History of Present Illness Mrs. Gmema Robert is a very pleasant 72-year-old female with past medical history detailed below who presented to the [facility] ER via personal vehicle in the evening of October 08, 2022. The patient describes having a history of high blood pressure for which she is treated with metoprolol. The dose of metoprolol was increased approximately 6 months ago. Thereafter her blood pressure seem to be acceptably controlled and she stopped monitoring her blood pressure regularly. Patient notes routine evaluation by PCP earlier this month. Blood pressure was elevated (150/92) at that time. No changes were made to her antihypertensive regimen. The patient began checking her blood pressure regularly and observed elevated readings during the work week, normal blood pressure readings on the weekends. The patient was at work yesterday and felt her typical high blood pressure symptoms, flushed, turning red in the face, with a mild headache. After work she took her metoprolol and ran errands. After getting her hair cut she attended a staff meeting where she consumed a slice of pizza. After consuming the slice of pizza she developed nausea. Blood pressure continued to be elevated and was actually higher than earlier in the day. After discussion with her niece who works downstairs the patient presented to the emergency room for further evaluation and treatment. Blood pressure on presentation was 163/85. Patient notes vomiting in the emergency room with improvement in nausea which returned following administration of contrast, receiving diphenhydramine, metoclopramide, and ondansetron with improvement. EKG showed no acute changes. High-sensitivity troponin I minimally elevated at 20.6 then 17.6 pg/ml. Chest x-ray showed no acute process. Resting echocardiography this morning revealed preserved LV systolic function without regional wall motion abnormality. LV thickness was described as normal. Doppler findings were not suggestive of pulmonary hypertension. Grade 1 diastolic dysfunction observed. Continuous telemetry monitoring since admission reveals sinus in the 70s and 80s with an occasional PVC. CT scan of the head showed no hemorrhage, mass-effect, or evidence of acute territorial ischemia by CT criteria. CTA of the neck demonstrated a beaded appearance of both internal carotid arteries typical for fibromuscular dysplasia. The carotid and vertebral arteries were widely patent bilaterally Past Medical and Surgical History Breast cancer status post right partial mastectomy and radiation Hypertension Dyslipidemia Tension headaches Generalized anxiety Insomnia Status post left sided breast reduction Hepatitis as a child Allergic rhinitis Removal of a lipoma from the left shoulder Family History: Mother was killed in a car accident at the age of 62. Father with COPD at the age of 80. He was a smoker with significant carotid disease and high cholesterol. Patient has 6 siblings. Oldest brother was killed in a car accident at 28. The other 5 siblings are without cardiac issues. Social History: Non-smoker. Rare alcohol. No illegal drug use. Previously worked as a nurse, currently working at a daycare Allergies Allergy/AdvReac Type Severity Reaction Status Date / Time No Known Allergies Allergy Unknown NO Verified 09/29/09 15:17 Home Medications Medication Instructions Recorded Confirmed Type amitriptyline 25 mg tablet 25 mg PO HS 10/09/22 10/09/22 History atorvastatin 20 mg tablet 20 mg PO HS 10/09/22 10/09/22 History lorazepam 0.5 mg tablet 0.5 mg PO HS PRN Insomnia 10/09/22 10/09/22 History metoprolol succinate 50 mg 50 mg PO DAILY 10/09/22 10/09/22 History tablet,extended release 24 hr Patient History Medical History HTN (hypertension) Hx of breast cancer Hypercholesteremia Surgical History Hx of breast surgery Social History Smoking Status: Never smoker Second Hand Exposure: No; Do You Dip or Chew Tobacco: No; Hx Alcohol Use: Yes Alcohol type: wine Hx Substance Use: No Preferred Language: Nauruan Communication Ability: Effective Windsmith Required: No Beliefs That Will Affect Care: None Current Living Situation: Spouse Current Living Situation Comment: Lives w/ spouse @ home Feels Safe at Home: Yes Safety Concerns: Feels Safe At This Time Assistive Devices: None Review of Systems Review of Systems: Constitutional: No change in weight. No fevers, sweats, or chills. HEENT: No amaurosis fugax. No dysphagia. + Allergic rhinitis Pulmonary: No history of pulmonary embolism, COPD or asthma. Cardiac: Chest pain in 2010, negative workup at [facility]. GI/Abd: Hepatitis at the age of 2. + Nausea and vomiting yesterday. No melana or hematochezia. Denies liver problems. Denies kidney issues. Vascular: No history of carotid disease, AAA, or claudication Hematologic: No coagulation disorder, anemia, or abnormal bleeding. Musculoskeletal: Negative. Skin: No rash. Neurologic: No history of TIA or CVA. No history of seizure. Female : See above. Endocrine: No DM or thyroid problems. Complete Review of Systems is as stated above, negative, or noncontributory Physical Exam Physical Exam: General: A&Ox3. NAD. Comfortable. Cooperative. HENT: Normocephalic. Atraumatic. Eyes: PER. Conjunctiva pink, sclera clear. Neck: Right carotid bruit. No JVD. No HJR. Heart: RRR. No murmur. No rub. No gallop. Lungs: Clear to auscultation. Abdomen: +BS. Soft. Nontender. No masses or organomegaly. Extremities: Thick, without overt edema. No clubbing. No cyanosis. Limited neurological examination is without focal deficits. Pulses: radial=2/4, posterior tibial=2/4. Results & Data ([facility]) Vital Signs (Past 12 Hours) Vital Signs Temp Pulse Pulse Resp BP BP Pulse Ox 10/09/22 10:53 36.1 C L 80 18 167/74 H 95 10/09/22 07:54 36.5 C 73 18 122/75 96 10/09/22 06:10 65 10/09/22 02:27 84 10/09/22 02:25 36.4 C L 80 16 94 10/09/22 02:25 10/09/22 02:00 74 19 124/73 97 10/09/22 02:04 10/09/22 01:30 80 17 113/64 92 10/09/22 01:00 73 19 136/65 92 10/09/22 00:30 76 19 154/90 H 95 10/09/22 00:00 76 16 142/61 H 92 Pulse Ox O2 Del Method O2 Del Method 10/09/22 10:53 Room Air 10/09/22 07:54 Room Air 10/09/22 06:10 10/09/22 02:27 10/09/22 02:25 Room Air 10/09/22 02:25 94 Room Air 10/09/22 02:00 Room Air 10/09/22 02:04 Room Air 10/09/22 01:30 Room Air 10/09/22 01:00 Room Air 10/09/22 00:30 Room Air 10/09/22 00:00 Room Air Laboratory Results Cardiac Enzymes 10/08/22 10/09/22 Range/Units 22:09 05:36 AST 28 (13-39) U/L Troponin I High Sens 20.6 H 17.6 H (0-14) pg/ml Coagulation 10/08/22 Range/Units 22:09 PT 12.6 H (9.0-12.0) Seconds APTT 29.2 (21.0-31.0) Seconds CBC 10/08/22 10/09/22 Range/Units 22:09 05:36 WBC 7.87 7.20 (4.8-10.8) K/ul RBC 4.44 3.99 (3.93-5.22) M/uL Hgb 14.4 13.3 (12.0-16.0) g/dl Hct 41.0 37.5 (34.1-44.9) % Plt Count 126 L 114 L (130-400) K/uL Neut # (Auto) 4.60 4.72 (1.4-6.5) K/uL Lymph # (Auto) 2.29 1.78 (1.2-3.4) K/uL Otero # (Auto) 0.66 0.59 (0.24-0.82) K/uL Eos # (Auto) 0.24 0.05 (0-0.50) K/uL Baso # (Auto) 0.06 0.04 (0-0.2) K/uL Comprehensive Metabolic Panel 10/08/22 10/09/22 Range/Units 22:09 05:36 Sodium 138 138 (136-145) mmol/L Potassium 3.7 4.3 (3.5-5.1) mmol/L Chloride 102 108 H (98-107) mmol/L Carbon Dioxide 27 24 (21-32) mmol/L BUN 20 17 (6-23) mg/dl Creatinine 0.77 0.64 (0.6-1.2) mg/dl Glucose 117 H 113 H (70-99(Fasting)) mg/dl Calcium 10.2 H 9.0 (8.5-10.1) mg/dl AST 28 (13-39) U/L ALT 31 (7-52) U/L Alkaline Phosphatase 103 (34-104) U/L Total Protein 7.9 (6.0-8.3) gm/dl Albumin 4.4 (3.4-5.0) gm/dl Intake and Output 10/08/22 10/09/22 10/09/22 22:59 06:59 14:59 Intake Total 1070 / 1070 Balance 1070 / 1070 Intake: IV 1070 / 1070 Sodium Chloride 0.9% 1000ML 1, 1000 / 1000 000 ml @ 999 mls/hr IV .Q1H1M [facility] Rx#:[id number] cefTRIAXone SODIUM 2,000 mg In 70 / 70 Dextrose 5% 50 ml @ 100 mls/hr IV Q24H [facility] Rx#:[id number] Other: Other Intake Source npo Weight 79.4 kg 78.8 kg Weight Measurement Method Chair Scale Standing Scale Diagnostic Findings EKG on presentation revealed sinus rhythm at 80 bpm with a first-degree AV block, with premature atrial complexes, incomplete right bundle branch block, left anterior fascicular block. Possible anterolateral infarct. QTc 459 ms. October 09, 2022 TTE Interpretation Summary ([facility], Dr. Cole): Normal left ventricular wall thickness. No regional wall motion abnormalities. Ejection fraction 60-65%. Normal RV size and function. Mild tricuspid regurgitation. Doppler findings do not suggest pulmonary hypertension. Grade 1 diastolic dysfunction.
[2022-10-09] MEDS ORDERED: LOSARTAN POTASSIUM 25 MG TAB PO SCH (11:45)
--- NOTE | 2022-10-09 13:34 | Ultrasound Report ---
US duplex renal artery CLINICAL HISTORY: ? Fibromuscular dysplasia TECHNIQUE: Real-time grayscale and color and spectral Doppler ultrasound imaging of the kidneys was p erformed. Comparison: None available at the time of this dictation. FINDINGS: Right kidney measures 10.2 cm. Left kidney measures 10.7 cm. RIGHT: Normal echogenicity with preserved corticomedullary differentiation. Normal cortical thickness. No hy dronephrosis. No convincing evidence of calculus or mass. Spectral analysis: No significant elevated velocities or resistive indices. LEFT: Normal echogenicity with preserved corticomedullary differentiation. Normal cortical thickness. No hy dronephrosis. No convincing evidence of calculus or mass. Spectral analysis: No significant elevated velocities resistive indices. Abdominal aorta: Patent. Peak systolic velocity 119 cm/s. Reference ranges: Normal main renal artery peak systolic velocity less than 180 cm/s. Ratio of renal artery PSV to aort ic PSV less than 3.5 equates to normal or less than 60% stenosis. Only one of the two criteria listed needs to be met for diagnosis. IMPRESSION: No evidence of renal artery stenosis. ACT 112: Negative or not required by law. Electronically signed by: Kwame Forbes M.D. 10/09/2022 1:32 PM
--- NOTE | 2022-10-09 19:05 | Hospitalist Progress Note ---
Date of Service October 09, 2022 delayed entry date of service noted above Assessment & Plan (1) Nausea: (2) Dizziness: Plan: ASSESSMENT AND PLAN: This is a 72-year-old female who presents with nausea, dizziness and elevated blood pressure. Nausea and dizziness. -- likely from uncontrolled hypertension -- CT head: There is no hemorrhage, mass effect, or evidence of acute territorial ischemia by CT criteria. CT angio head and neck: IMPRESSION: 1. Unremarkable CTA of the head. 2. Irregular beaded morphology involving the distal cervical segments of the internal carotid arteries may represent fibromuscular dysplasia. Renal Artery US: IMPRESSION: No evidence of renal artery stenosis. -- Losartan 25mg po daily added consider HCTZ as outpatient -- further management and follow up for fibromuscular dysplasia as outpatient Mild Troponin elevation -- Cardiology SVC consulted -- s/p Exercise Stress Test: negative for inducible ischemia Possible Subclinical Hypothyroidism. TSH 6.5, T4 0.72. Further management and follow up as outpatient. Thrombocytopenia, platelets are 126. Follow up as outpatient Mild Total Bili eleation. Further management and follow up as outpatient. Hyperlipidemia: Continue statin. Generalized anxiety. Continue home amitriptyline and Ativan p.r.n. DISPOSITION: d/c home ff up with PCP in 1 week plan of care discussed with patient in detail and at length all questions answered she is understanding, agreeable, comfortable with the plan of care Admission and Anticipated Discharge Date Admission Date: October 09, 2022 Subjective ff up for nausea/dizziness, etc seen resting in bed, comfortable states nausea, dizziness resolved feeling better compared to yesterday no chest pain, dyspnea, palpitations, dizziness no other symptoms re-evaluated after stress test feels fine no new symptoms states she is ready for discharge Review of Systems Review of Systems: all noted and negative except for above Physical Exam Physical Exam: General- oriented x 3, not in distress, speaks in sentences with no effort or accessory muscle use Eyes- anicteric Neck- no JVD Lungs- clear breath sounds bilaterally, no rales/wheezes Heart- normal rate, regular rhythm; no murmurs Abdomen- normal bowel sounds, nondistended, soft, nontender Extremities- no pretibial edema, no calf tenderness Neuro- alert, oriented x 3; no gross focal neurologic deficits Skin- warm & dry Results & Data Results & Data ([facility]) Vital Signs (Past 12 Hours) Vital Signs Temp Pulse Pulse Pulse Resp BP Pulse Ox 10/09/22 16:47 36.8 C 86 89 14 143/84 H 95 10/09/22 15:35 78 10/09/22 14:40 36.8 C 89 14 143/84 H 95 10/09/22 10:53 36.1 C L 80 18 167/74 H 95 10/09/22 07:54 36.5 C 73 18 122/75 96 O2 Del Method 10/09/22 16:47 10/09/22 15:35 10/09/22 14:40 Room Air 10/09/22 10:53 Room Air 10/09/22 07:54 Room Air all noted and reviewed including below
[2022-10-09] MEDS ORDERED: AMITRIPTYLINE HCL 25 MG TAB PO SCH (21:00)
[2022-10-09] MEDS ORDERED: ATORVASTATIN 20 MG TAB PO SCH (21:00)
--- NOTE | 2022-10-10 06:44 | Electrocardiogram Report ---
Test Reason : Blood Pressure : / mmHG Vent. Rate : 080 BPM Atrial Rate : 080 BPM P-R Int : 210 ms QRS Dur : 096 ms QT Int : 398 ms P-R-T Axes : 046 -49 042 degrees QTc Int : 459 ms Sinus rhythm with 1st degree A-V block with Premature atrial complexes Incomplete right bundle branch block Left anterior fascicular block Possible Anterolateral infarct , age undetermined Abnormal ECG No previous ECGs available Confirmed by Luis Miguel Lewis ([id number]) on 10/10/2022 6:44:05 AM Referred By: REFERRED SELF Confirmed By:Luis Miguel Lewis
--- NOTE | 2022-10-11 14:36 | Discharge Summary ---
Discharge Summary Date of Service October 11, 2022 delayed entry date of service 10/11/22 Notes For Next Care Provider Ff up mild thrombocytopenia, possible Subclinical Hypothyroidism, mild Total bili elevation. Please refer to assessment and plan below. Medication Changes From Visit New: Losartan 25mg po daily Admission HPI Per Admitting Provider HISTORY OF PRESENT ILLNESS: This is a 72-year-old female with past medical history significant for hyperlipidemia, hypertension, tension headache, history of breast cancer diagnosed in 2008, status post right partial mastectomy and radiation, history of insomnia, generalized anxiety, comes because of dizzy and nausea. The patient says she was at work when she felt her blood pressure running high at workplace and she came home at 4 p.m., took her blood pressure, systolic blood pressure was 169. She took her metoprolol dose of 50 mg, which was recently increased from 25 to 50mg and she had conference and when she came back at 8 p.m., her systolic blood pressure was still 177, she decided to come to the hospital. On the way she felt nauseous and dizzy and the room spinning. She thought she will get diarrhea she had no bowel movement in the ER .She had episode of vomiting in the ER. She received Benadryl, Reglan and Zofran. Currently, resting comfortably, hemodynamically stable. Denies any chest pain or shortness of breath. No cough, no fever, no chills. No difficulty swallowing. She had a headache earlier that has resolved. No blurred visions. Currently, no dizziness. Currently, no nausea. No earaches, no abdominal pain. Normal bowel and bladder movements. No swelling in the legs, no rash. Otherwise, ambulating okay. Admission Exam Per Admitting Provider GENERAL: The patient is of moderate build, not in acute distress. VITAL SIGNS: Temperature 37, pulse 71, respiratory rate 16, blood pressure 113/66, oxygen 99% on room air. HEENT: Pupils equal, round and reactive to light. Oral mucosa moist. NECK: No JVD or neck masses. CARDIOVASCULAR: S1 and S2 heard. Regular rate and rhythm. No murmur, no gallop. RESPIRATORY SYSTEM: Normal AP diameter. No accessory muscle use. No wheezing or crackles. ABDOMEN: Soft, bowel sounds present, nontender, no distention. CENTRAL NERVOUS SYSTEM: Cranial nerves II-XII grossly inta Principal Dx & Hospital Course #1 = Principal Diagnosis (1) Nausea: (2) Dizziness: ASSESSMENT AND PLAN: This is a 72-year-old female who presents with nausea, dizziness and elevated blood pressure. Nausea and dizziness. -- likely from uncontrolled hypertension -- CT head: There is no hemorrhage, mass effect, or evidence of acute territorial ischemia by CT criteria. CT angio head and neck: IMPRESSION: 1. Unremarkable CTA of the head. 2. Irregular beaded morphology involving the distal cervical segments of the internal carotid arteries may represent fibromuscular dysplasia. Renal Artery US: IMPRESSION: No evidence of renal artery stenosis. -- Losartan 25mg po daily added consider HCTZ as outpatient -- further management and follow up for fibromuscular dysplasia as outpatient Mild Troponin elevation -- Cardiology SVC consulted -- s/p Exercise Stress Test: negative for inducible ischemia Possible Subclinical Hypothyroidism. TSH 6.5, T4 0.72. Further management and follow up as outpatient. Thrombocytopenia, platelets are 126--> 114 Follow up as outpatient Mild Total Bili elevation. Further management and follow up as outpatient. Hyperlipidemia: Continue statin. Generalized anxiety. Continue home amitriptyline and Ativan p.r.n. DISPOSITION: d/c home ff up with PCP in 1 week plan of care discussed with patient in detail and at length all questions answered she is understanding, agreeable, comfortable with the plan of care Discharge Exam General- oriented x 3, not in distress, speaks in sentences with no effort or accessory muscle use Eyes- anicteric Neck- no JVD Lungs- clear breath sounds bilaterally, no rales/wheezes Heart- normal rate, regular rhythm; no murmurs Abdomen- normal bowel sounds, nondistended, soft, nontender Extremities- no pretibial edema, no calf tenderness Neuro- alert, oriented x 3; no gross focal neurologic deficits Skin- warm & dry Updated Medication List Medication Instructions Recorded Confirmed Type amitriptyline 25 mg tablet 25 mg PO HS 10/09/22 10/09/22 History atorvastatin 20 mg tablet 20 mg PO HS 10/09/22 10/09/22 History lorazepam 0.5 mg tablet 0.5 mg PO HS PRN Insomnia 10/09/22 10/09/22 History losartan 25 mg tablet 25 mg PO QAM 30 days #30 tabs 10/09/22 Rx metoprolol succinate 50 mg 50 mg PO DAILY 10/09/22 10/09/22 History tablet,extended release 24 hr Hospital Stay Data Consultations 10/09/22 00:17 ED Decision to Admit Stat 10/09/22 08:00 Consult Cardiology Routine Diagnostic Imagining Performed Chest X-Ray 10/08/22 21:45 XR chest 1V portable HISTORY: 72 years-old Female nausea, htn, dizziness do not with hypertension and dizziness COMPARISON: None TECHNIQUE: AP view of the chest FINDINGS: Cardiomediastinal and hilar silhouettes are within normal limits. No pneumothorax, pleural effusion, airspace consolidation or overt pulmonary edema. Bones of the chest appear grossly intact. IMPRESSION: No acute process. ACT 112: Negative or not required by law. The above report was generated using voice recognition software. It may contain grammatical, syntax or spelling errors. Electronically signed by: Ross Stewart M.D. 10/09/2022 7:[address] 10/08/22 21:45 CT SCAN OF THE BRAIN WITHOUT IV CONTRAST CLINICAL HISTORY: Hypertension. Nausea. Headache and dizziness. COMPARISON STUDY: No priors. TECHNIQUE: Unenhanced axial CT scan of the brain is performed from the vertex to the skull base. A dose lowering technique was utilized adhering to the principles of ALARA. CT DOSE: 537.48 mGy.cm FINDINGS: Brain parenchyma: There is age-related involutional change noting minimal microangiopathic disease. There is no hemorrhage, mass effect, or evidence of acute territorial ischemia by CT criteria. Salazar-white matter differentiation is preserved. No extra-axial fluid collection is seen. Ventricles, sulci, cisterns: Prominent secondary to involutional change. Intracranial vasculature: The intracranial vessels at the skull base are normal as imaged. Calvarium: Unremarkable. Sinuses and mastoids: The visualized paranasal sinuses are clear. The mastoid air cells are well pneumatized. Orbits: The bony orbits are grossly intact. IMPRESSION: There is no hemorrhage, mass effect, or evidence of acute territorial ischemia by CT criteria. ACT 112: Negative or not required by law. Electronically signed by: Hung Humphries M.D. 10/09/2022 6:41 AM Head CTA 10/08/22 23:03 CT angio head w con CLINICAL HISTORY: 72 years-old Female with nausea, dizziness, htn. Acute nausea with dizziness and hypertension COMPARISON STUDY: Head CT of same day TECHNIQUE: Following the IV administration of cc of Optiray, CT angiogram of the brain was performed from the skull base to the vertex. Images are reviewed in the axial, sagittal, and coronal planes. 3-D MIPS images are created and assessed. IV contrast was administered without complication. All measurements were obtained according to NASCET criteria. A dose lowering technique was utilized adhering to the principles of ALARA. FINDINGS: CT ANGIOGRAM OF THE BRAIN: The distal internal carotid arteries are irregular with a beaded morphology, not ably within the distal cervical segments. The middle and anterior cerebral arteries are patent. The distal vertebral arteries, basilar and posterior cerebral arteries are patent. Cerebral venous sinuses are patent. There is no abnormal intracranial enhancement identified. No acute calvarial fracture. The mastoid air cells and paranasal sinuses are clear. Unremarkable soft tissues. IMPRESSION: 1. Unremarkable CTA of the head. 2. Irregular beaded morphology involving the distal cervical segments of the internal carotid arteries may represent fibromuscular dysplasia. ACT 112: Negative or not required by law. The above report was generated using voice recognition software. It may contain grammatical, syntax or spelling errors. Electronically signed by: Ross Stewart M.D. 10/09/2022 7:21 AM Neck CTA 10/08/22 23:03 CT ANGIOGRAM OF THE NECK CLINICAL HISTORY: Nausea and dizziness. Hypertension. COMPARISON STUDY: No priors. TECHNIQUE: Following the IV administration of 103 of Optiray 350, CT angiogram of the neck was performed from the aortic arch to the skull base. Images are reviewed in the axial, sagittal, and coronal planes. 3-D MIPS images are created and assessed. IV contrast was administered without complication. All measurements were calculated based on NASCET criteria. A dose lowering technique was utilized adhering to the principles of ALARA. CT DOSE: 489.04 mGy.cm FINDINGS: Thoracic aorta: Visualized portions of the thoracic aorta are normal in caliber. The aortic arch demonstrates standard 3-vessel anatomy. Right carotid arterial system: The right common carotid artery is widely patent, as are the right internal and external carotid arteries. The right internal carotid artery demonstrates a beaded appearance, typical for fibromuscular dysplasia. Left carotid arterial system: The left common carotid artery is widely patent, as are the left internal and external carotid arteries. The internal carotid artery demonstrates a beaded appearance, typical for fibromuscular dysplasia. Vertebral arteries: The vertebral arteries are widely patent bilaterally and codominant. Subclavian arteries: Widely patent bilaterally. Intracranial vasculature: The visualized intracranial vessels the skull base are widely patent. Jugular veins: Widely patent bilaterally. Brain parenchyma: The visualized brain parenchyma the skull base is within normal limits. Lung apices: Partially visualized upper lobe lung parenchyma appears clear. Soft tissues: The visualized pharyngeal soft tissues are normal in appearance noting angiographic phase technique. The oropharyngeal airway appears widely patent. The salivary and thyroid glands are normal in appearance. No cervical lymphadenopathy is seen. Skeletal structures: The skeletal structures are osteopenic. The visualized calvarium at the skull base appears intact. The imaged cervical spine is maintained noting mild spondylosis. No lytic or blastic lesion is seen. Sinuses and mastoids: The visualized paranasal sinuses are clear. The mastoid air cells are well pneumatized. IMPRESSION: 1. Both internal carotid arteries demonstrate a beaded appearance, typical for fibromuscular dysplasia. 2. The carotid and vertebral arteries are widely patent bilaterally. ACT 112: Negative or not required by law. Electronically signed by: Hung Humphries M.D. 10/09/2022 6:46 AM Renal Artery Duplex 10/09/22 11:33 US duplex renal artery CLINICAL HISTORY: ? Fibromuscular dysplasia TECHNIQUE: Real-time grayscale and color and spectral Doppler ultrasound imaging of the kidneys was performed. Comparison: None available at the time of this dictation. FINDINGS: Right kidney measures 10.2 cm. Left kidney measures 10.7 cm. RIGHT: Normal echogenicity with preserved corticomedullary differentiation. Normal cortical thickness. No hydronephrosis. No convincing evidence of calculus or mas s. Spectral analysis: No significant elevated velocities or resistive indices. LEFT: Normal echogenicity with preserved corticomedullary differentiation. Normal cortical thickness. No hydronephrosis. No convincing evidence of calculus or mass. Spectral analysis: No significant elevated velocities resistive indices. Abdominal aorta: Patent. Peak systolic velocity 119 cm/s. Reference ranges: Normal main renal artery peak systolic velocity less than 180 cm/s. Ratio of renal artery PSV to aortic PSV less than 3.5 equates to normal or less than 60% stenosis. Only one of the two criteria listed needs to be met for diagnosis. IMPRESSION: No evidence of renal artery stenosis. ACT 112: Negative or not required by law. Electronically signed by: Kwame Forbes M.D. 10/09/2022 1:32 PM Pending Results Patient Have Any Pending Studies at Discharge: No Discharge Instructions Given to Patient (Per Discharging Provider) PLEASE REFER TO YOUR NEW MEDICATION LIST AND FOLLOW INSTRUCTIONS CAREFULLY. YOUR NEW MEDICATIONS INCLUDE: LOSARTAN- for blood pressure control PLEASE CALL YOUR PRIMARY CARE PHYSICIAN OR RETURN TO THE ER IF WITH WORSENING OF SYMPTOMS, INCLUDING NAUSEA, DIZZINESS, CHEST PAIN, SHORTNESS OF BREATH, WEAKNESS, PROBLEMS WITH URINATION, FEVER/CHILLS FOLLOW UP WITH PRIMARY CARE PHYSICIAN IN 1 WEEK. THE SCHEDULING OFFICE IS CLOSED TODAY. THEY WILL BE CALLING YOU SOON FOR THE APPOINTMENT SCHEDULE. Total Time Total Time Spent Total Time Spent (In Minutes): >30 minutes
== END 2022-10-09 17:55 | disposition home or self-care (01) ==
LOC: 2W 21:25 → ED 21:25 → 2W 10-09 02:04